=== PATIENT | female | born 1965 ===

== ENCOUNTER 2019-04-18 11:59 | Day surgery (SDC) | payer OTHER ==
[~2019-04-18] VITALS: Ht 162.6 cm; Wt 130.0 kg
[~2019-04-18 11:59] MED LIST: IBUP800 PO; MAGNESIUM CALCIUM PO; POTASSIUM PO; VITAMIN D50000 UNIT PO; Vitamin B Comple1 EA PO
--- NOTE | 2019-04-18 13:01 | NUR ---
Ambulatory in Day Surgery. Patient states colon prep results clear. History, Chart, Medications and Allergies reviewed before start of procedure. Lungs clear T/O to Auscultation. Patient confirms NPO status and agrees with scheduled surgery. Pre-Op teaching done. Pt verbalizes understanding. Patient States Post-Procedure ride home has been arranged.
--- NOTE | 2019-04-18 13:18 | NUR ---
04/18/19 1318 Vernon Harris History, Chart, Medications and Allergies reviewed before start of procedure.MONITOR INTACT WITH CONTINUOUS PULSE OXIMETRY AND INTERMITTENT BP.3-LEAD EKG REVIEWED WITH PHYSICIAN PRIOR TO START OF PROCEDURE.O2 VIA N/C INTACT THROUGHOUT SEDATION/PROCEDURE. Patient confirms NPO status and agrees with scheduled surgery.See Anesthesia record.
--- NOTE | 2019-04-18 15:13 | NUR ---
Patient up to Ambulate independently. Gait steady. Discharge instructions reviewed with patient. Patient verbalizes understanding. Copy given to patient to take home. Patient States Post-Procedure ride home has been arranged. Discharged via wheelchair to private car for ride home.
== END 2019-04-18 15:10 | disposition home or self-care (01) ==
LOC: ORSCMMR 11:59 → ORSCSDS 13:30 → ORSCMMR 13:30 → ORSCSDS 13:45 → ORSCMMR 15:10
PROVIDERS: Internal Medicine Gastroenterology
PROC: 0DBN8ZX Excision of Sigmoid Colon, Via Natural or Artificial Opening Endoscopic, Diagnostic (ICD-10-PCS; principal; 2019-04-18 13:30)
PROC: 0DBM8ZX Excision of Descending Colon, Via Natural or Artificial Opening Endoscopic, Diagnostic (ICD-10-PCS; principal; 2019-04-18 13:30)
PROC: 0DBL8ZX Excision of Transverse Colon, Via Natural or Artificial Opening Endoscopic, Diagnostic (ICD-10-PCS; principal; 2019-04-18 13:30)
PROC: 0DBK8ZX Excision of Ascending Colon, Via Natural or Artificial Opening Endoscopic, Diagnostic (ICD-10-PCS; principal; 2019-04-18 13:30)
DX: Z12.11 Encounter for screening for malignant neoplasm of colon (principal); Z80.0 Family history of malignant neoplasm of digestive organs; D12.2 Benign neoplasm of ascending colon; D12.3 Benign neoplasm of transverse colon; D12.5 Benign neoplasm of sigmoid colon; K63.5 Polyp of colon; K57.30 Diverticulosis of large intestine without perforation or abscess without bleeding; K64.1 Second degree hemorrhoids; G47.33 Obstructive sleep apnea (adult) (pediatric); E66.01 Morbid (severe) obesity due to excess calories; Z68.42 Body mass index [BMI] 45.0-49.9, adult
CPT/HCPCS: 88305; J2704; J7120

== ENCOUNTER 2021-05-19 07:01 | Day surgery (SDC) | payer OTHER ==
[~2021-05-19] VITALS: Ht 162.6 cm; Wt 112.7 kg
[~2021-05-19 07:01] MED LIST changes: +COD LIVER OIL PO; +ERGO400 PO; +FISH OIL 1,2001 EAC7 PO; +MAGNESIUM OXID500 MG PO; -VITAMIN D50000 UNIT PO
--- NOTE | 2021-05-19 11:43 | NUR ---
IN AND OUT CATH FOR 650ML, PT TOLERATED WELL.
--- NOTE | 2021-05-19 12:53 | NUR ---
PT ARRIVED TO THE ROOM AT 1140. ALERT AND ORIENTED SHE REPORTS NUMBNESS TO BLE. DENIES PAIN, N/V. WILL CONTINUE TO MONITOR.
--- NOTE | 2021-05-19 19:31 | NUR ---
SHIFT SUMMARY PT IS POD#0 FROM L TKA WITH DR. BRADY. PAIN MANAGED WITH PO PAIN MEDICATION. PT WORKED WITH THERAPY, HAS VOIDED AND IS TOLERATING PO. VSS. REPORT GIVEN TO TIMUR STORM.
[2021-05-20 04:30] LABS: BASOPHILS ABSOLUTE AUTO 0.04 K/mm3 (0.00-0.23); BASOPHILS PERCENT AUTO 0 % (0-2); EOSINOPHILS ABSOLUTE AUTO 0.07 K/mm3 (0.00-0.68); EOSINOPHILS PERCENT AUTO 0 % (0-6); Hematocrit 38.9 % (33.0-51.0); Hemoglobin 12.7 g/dL (11.5-16.0); IMMATURE GRAN PERCENT AUTO 1 % (0-1); LYMPHOCYTES ABSOLUTE AUTO 2.69 K/mm3 (0.84-5.20); LYMPHOCYTES PERCENT AUTO 14 % (21-46); MONOCYTES ABSOLUTE AUTO 1.46 K/mm3 (0.16-1.47); MONOCYTES PERCENT AUTO 7 % (4-13); Mean Corpuscular HGB 30.4 pg (26.0-34.0); Mean Corpuscular HGB Conc 32.6 g/dL (31.5-36.5); Mean Corpuscular Volume 93 fL (80-100); Mean Platelet Volume 9.6 fL (9.1-12.4); NEUTROPHILS ABSOLUTE AUTO 15.34 K/mm3 (1.96-9.15); NEUTROPHILS PERCENT AUTO 78 % (41-73); Platelet Count 342 K/mm3 (150-400); RDW Coefficient Variation 13.3 % (11.7-14.2); RDW Standard Deviation 45.3 fL (35.1-46.3); Red Blood Cell Count 4.18 M/mm3 (3.80-5.20)
[2021-05-20 04:51] LABS: Anion Gap 6 mmol/L (6-16); Blood Urea Nitrogen 14 mg/dL (8-24); Bun/Creatinine Ratio 25.9 (12.0-20.0); CO2, Blood 25 mmol/L (21-32); Chloride, Blood 108 mmol/L (98-108); Creatinine, Blood 0.54 mg/dL (0.40-1.00); Glomerular Filtration Rate >60 (60-); Glucose, Blood 105 mg/dL (70-99); Potassium, Blood 4.1 mmol/L (3.5-5.5); Sodium, Blood 139 mmol/L (136-145)
--- NOTE | 2021-05-20 04:55 | NUR ---
SHIFT SUMMARY: PT POD#1 FOR A LT SHERI. AQUACEL DRESSING C/D/I WITH POLAR PACK IN PLACE. PAIN WELL MANAGED WITH OXYCODONE AND SCHEDULED TORADOL+TYLENOL. PT OUT OF BED TO BATHROOM WITH SBA AND FWW+GB. AMBULATED IN HALLWAY ONCE AND DOING EXERCISES WHILE IN BED. TOLERATING ACTIVITY WELL. PT NEEDING REMINDERS AT TIMES ON HOW TO SAFETLY USE WALKER. PT TOLERATING PO, DENIES N/V. VOIDING WELL. IV ABX COMPLETE.
[2021-05-20] MEDS ORDERED: XARELTO10 M3 PO (09:50)
[2021-05-20] MEDS ORDERED: Percocet 5-3251 EACH PO (09:51)
--- NOTE | 2021-05-20 15:05 | NUR ---
DISCHARGE SUMMARY PT A&OX4, VSS/RA, ONEL PO, VOIDING WELL, AMB W/FWW&GB&SBA, PAIN MANAGED W/10 MG OXY, TORADOL AND TYLENOL. DC INSTRUCTIONS PROVIDED. PT AND DAUGHTER REPORTED UNDERSTANDING THOSE INSTRUCTIONS INCLUDING DRESSING CHANGES, SHOWER OKAY/NO TUB/JACUZZI, AMBULATION WITH FWW AT ALL TIMES WITH REST PERIODS ICE AND ELEVATED, WEAR CYNTHIA WRAP TO PREVENT SWELLING, WEAR TEDS AT ALL TIMES WITH 1X OFF/DAY, PAIN MANAGEMENT AND ANTICOAGULANT. LEFT FLOOR VIA WC WITH [facility], TO GO HOME WITH DAUGHTER AND SON-IN-LAW, WITH ALL PERSONAL POSSESSIONS INCLUDING AQUACEL DRESSINGS, POLAR KIM, DC PACKET, PAIN AND ANTICOAG SCRIPTS.
--- NOTE | 2021-05-21 11:41 | NUR ---
05/21/21 1141 Alfreda Cruz VERIFICATIONS: EDIT CHART.
== END 2021-05-20 15:00 | disposition home or self-care (01) ==
LOC: ORSCMMR 07:01 → ORD 08:15 → ORSCMMR 08:15 → SURS 11:36 → ORSCMMR 05-20 15:00
PROVIDERS: Orthopaedic Surgery
PROC: 0SRD0JA Replacement of Left Knee Joint with Synthetic Substitute, Uncemented, Open Approach (ICD-10-PCS; principal; 2021-05-19 08:15)
PROC: 8E0Y0CZ Robotic Assisted Procedure of Lower Extremity, Open Approach (ICD-10-PCS; principal; 2021-05-19 08:15)
DX: M17.12 Unilateral primary osteoarthritis, left knee (principal); Z87.891 Personal history of nicotine dependence; G47.33 Obstructive sleep apnea (adult) (pediatric); E66.01 Morbid (severe) obesity due to excess calories; Z68.41 Body mass index [BMI] 40.0-44.9, adult
CPT/HCPCS: 27447; S2900; 36415; 73560-LT; 80048; 85025; 97110; 97116; 97161; 97530; A9270; C1776; J0171; J0690; J0735; J1100; J1885; J2250; J2370; J2405; J2704; J2795; J3010; J7120

== ENCOUNTER 2021-10-06 13:16 | Day surgery (SDC) | payer OTHER ==
[~2021-10-06] VITALS: Ht 162.6 cm; Wt 106.6 kg
[~2021-10-06 13:16] MED LIST changes: +BLUE GREEN ALGAE PO; +CHLORELLA PO; +DULO60 PO; +FISH OIL PO; +LORA10ER PO; +MAGNESIUM PO; +Percocet 10-321 EACH PO; +Percocet 5-3251 EACH PO; +Phentermine HCl30 MG PO; +Prinivil10 MG PO; +TRAM50 PO; +VITAMIN D310 MC4 PO; +XARELTO10 M3 PO; +[UNRECOGNIZED DRUG - OTHER] PO
--- NOTE | 2021-10-06 18:25 | NUR ---
PATIENT ARRIVED TO THE FLOOR FROM PACU AT ABOUT 1730. PATIENT AWAKE AND ALERT, ABLE TO MAKE NEEDS AND WANTS KNOWN. ABLE TO MOVE FEET BUT UNABLE TO MOVE TOES INDIVIDUALLY. ABLE TO LIFT LEGS SLIGHTLY OFF BED. AQUACEL DRESSING TO RIGHT HIP IS CDI. POLAR PACK IN PLACE. SCD'S IN PLACE. LCTA ON ROOM AIR. NO COMPLAINTS OF PAIN AT THIS TIME. TOLERATING PO INTAKE, NO COMPLAINTS OF NAUSEA. CALL LIGHT AND WATER IN EASY REACH. AAO X 4 .
--- NOTE | 2021-10-07 03:37 | NUR ---
SHIFT SUMMARY PT A&O X4 AND IN PLEASENT MOOD T/O SHIFT. S/P R TOTAL HIP ARTHROPLASTY POD 1. AQUACEL IN PLACE, CDI. POLAR PACK IN PLACE. PPP. PT TOLERATING PO INTAKE WELL. VOIDING WELL, AND DENIES N/V. STABLE GAIT W/ AMBULATION. CALL LIGHT W/IN REACH. VSS.
[2021-10-07 04:52] LABS: BASOPHILS ABSOLUTE AUTO 0.03 K/mm3 (0.00-0.23); BASOPHILS PERCENT AUTO 0 % (0-2); EOSINOPHILS ABSOLUTE AUTO 0.01 K/mm3 (0.00-0.68); EOSINOPHILS PERCENT AUTO 0 % (0-6); Hematocrit 33.6 % (33.0-51.0); Hemoglobin 11.1 g/dL (11.5-16.0); IMMATURE GRAN ABSOLUTE AUTO 0.07 K/mm3 (0.00-0.10); IMMATURE GRAN PERCENT AUTO 0 % (0-1); LYMPHOCYTES ABSOLUTE AUTO 1.27 K/mm3 (0.84-5.20); LYMPHOCYTES PERCENT AUTO 7 % (21-46); MONOCYTES ABSOLUTE AUTO 1.17 K/mm3 (0.16-1.47); MONOCYTES PERCENT AUTO 7 % (4-13); Mean Corpuscular HGB 29.8 pg (26.0-34.0); Mean Corpuscular Volume 90 fL (80-100); Mean Platelet Volume 9.9 fL (9.1-12.4); NEUTROPHILS ABSOLUTE AUTO 15.13 K/mm3 (1.96-9.15); NEUTROPHILS PERCENT AUTO 86 % (41-73); Platelet Count 305 K/mm3 (150-400); RDW Coefficient Variation 13.2 % (11.7-14.2); RDW Standard Deviation 43.6 fL (35.1-46.3); Red Blood Cell Count 3.72 M/mm3 (3.80-5.20); White Blood Cell Count 17.68 K/mm3 (4.00-11.30)
[2021-10-07 06:23] LABS: Anion Gap 8 mmol/L (6-16); Blood Urea Nitrogen 15 mg/dL (8-24); Bun/Creatinine Ratio 23.7 (12.0-20.0); CO2, Blood 24 mmol/L (21-32); Chloride, Blood 109 mmol/L (98-108); Creatinine, Blood 0.63 mg/dL (0.40-1.00); Glomerular Filtration Rate >60 (60-); Glucose, Blood 98 mg/dL (70-99); Potassium, Blood 4.2 mmol/L (3.5-5.5); Sodium, Blood 141 mmol/L (136-145)
[2021-10-07] MEDS ORDERED: Aspir 8181 MG PO (09:01)
[2021-10-07] MEDS ORDERED: Percocet 5-3251 EACH PO (09:01)
--- NOTE | 2021-10-07 10:54 | NUR ---
DISCHARGE NOTE: PATIENT WAS EDUCATED ON DISCHARGE INSTRUCTIONS. SHE VERBALIZED UNDERSTANDING OF INSTRUCTIONS. HARD PERSCRIPTIONS ARE IN HER INSTRUCTIONS FOLDER. IV WAS TAKEN OUT AND WAS WNL. PATIENT HAS A C/D/I AQUACEL ON HER RIGHT HIP. PATIENT DENIES NUMBNESS AND TINGLING. SHE IS ABLE TO MOVE FINGERS AND TOES. PAIN IS MANAGED WITH PO MEDICATIONS. SHE IS DRESSED AND HAS HER ITEMS GATHERED IN THE ROOM. SHE IS CURRENTLY SITTING IN HER CHAIR AWAITING HER RIDE TO GET HERE. SHE WILL BE WHEELCHAIRED OUT TO THE CAR ONCE HER RIDE IS HERE TO TAKE HER HOME.
--- NOTE | 2021-10-07 12:39 | NUR ---
10/07/21 1239 Alfreda Cruz VERIFICATIONS: EDIT CHART.
== END 2021-10-07 15:20 | disposition home or self-care (01) ==
LOC: ORSCMMR 13:16 → ORD 15:00 → SURS 17:41 → ORSCMMR 10-07 15:20
PROVIDERS: Orthopaedic Surgery
PROC: 0SR90JA Replacement of Right Hip Joint with Synthetic Substitute, Uncemented, Open Approach (ICD-10-PCS; principal; 2021-10-06 15:00)
DX: M16.11 Unilateral primary osteoarthritis, right hip (principal); I10 Essential (primary) hypertension; G47.33 Obstructive sleep apnea (adult) (pediatric); J45.909 Unspecified asthma, uncomplicated; Z87.891 Personal history of nicotine dependence; Z79.899 Other long term (current) drug therapy; E66.01 Morbid (severe) obesity due to excess calories; Z68.41 Body mass index [BMI] 40.0-44.9, adult
CPT/HCPCS: 36415; 72170; 80048; 85025; 97110; 97116; 97162; A9270; C1776; J0171; J0690; J0735; J1100; J1885; J2250; J2405; J2704; J2795; J3010; J7120